=== PATIENT | female | born 1985 | race Caucasian/White ===

== ENCOUNTER 2017-12-03 09:47 | Emergency (ER) | payer BC, OTHER ==
[2017-12-03 10:33] LABS: #Eosinphils 0.1 thou/uL (0.0-0.7); #Lymphocytes 2.3 thou/uL (1.20-3.40); #Monocytes 0.6 thou/uL (0.11-0.59); #Neutrophils 3.5 thou/uL (1.40-6.50); %Basophils 0.5 % (0.0-1.0); %Lymphocytes 35.5 % (21.0-51.0); %Monocytes 8.6 % (0.0-10.0); %Neutrophils 53.4 % (42.0-75.0); Hemoglobin 14.6 g/dL (12.0-16.0); Mean Corpuscular Volume 88.3 fl (81.0-99.0); Mean Platelet Volume 9.4 fL (7.4-10.4); Platelet Count 197 thou/uL (130-400); RBC Distribution Width 12.8 % (11.5-14.5); Red Blood Cell (RBC) Count 4.85 mill/uL (4.20-5.40); White Blood Cell (WBC) Count 6.6 thou/uL (4.8-10.8)
[2017-12-03 10:54] LABS: BUN (Urea Nitrogen) Less than 20 mg/dL (7.0-18.7)
[2017-12-03 10:56] LABS: Lipase Less than 32 U/L (8-78)
[2017-12-03 11:06] LABS: Albumin 4.5 g/dL (3.5-5.0)
[2017-12-03 11:07] LABS: Chloride 107 mmol/L (98-107); Potassium 4.5 mmol/L (3.5-5.1); Sodium 139 mmol/L (136-145)
[2017-12-03 11:08] LABS: Calcium 9.7 mg/dL (7.8-10.44)
[2017-12-03 11:09] LABS: Globulin 3.1 g/dL (2.4-3.5); Glucose 94 mg/dL (70-105); Protein, Total 7.6 g/dL (6.0-8.3)
[2017-12-03 11:10] LABS: Anion Gap 15 mmol/L (10-20); Bilirubin, Total 0.6 mg/dL (0.2-1.2); Carbon Dioxide 22 mmol/L (22-29)
[2017-12-03 11:11] LABS: Alkaline Phosphatase 57 U/L (40-150)
[2017-12-03 11:12] LABS: Calc. Creatinine Clearance 0 mL/min (70-130); Estimated GFR-MDRD Greater than 90
[2017-12-03 11:14] LABS: ALT (SGPT) 20 U/L (8-55); AST (SGOT) 15 U/L (5-34)
[2017-12-03 12:05] LABS: BHCG - Serum Negative (NEGATIVE); Pregs Control Background? CLEAR/WHITE (CLR/WHITE); Pregs Control Bar Appear? YES (CONTROL BAR)
--- NOTE | 2017-12-03 14:11 | RAD ---
CHEST 1 VIEW ABDOMEN 2 VIEWS: Date: 12/03/17 HISTORY: Chest and abdomen pain. FINDINGS: Cardiac silhouette and pulmonary vasculature are unremarkable. Mediastinum is midline. There is no co nfluent air space consolidation or evidence of free subdiaphragmatic gas. Gas and stool overlie the colon and rectum. No differential air fluid levels. Phleboliths project ove r the pelvis. IMPRESSION: No significant abnormalities are demonstrated. POS: [facility]
[2017-12-03] MEDS ORDERED: Iopamidol 370 76% 50 ML VIAL FS ONE (14:36)
[2017-12-03] MEDS ORDERED: ISOVUE-370 76%-LOCM 1 ML ONE (14:36)
[2017-12-03 15:07] LABS: Bilirubin Negative (Negative); Blood, Urine Negative (Negative); Clarity CLEAR (Clear); Glucose, Urine (Dipstick) Negative (Negative); Leukocyte Negative (Negative); Nitrite Negative (Negative); Protein, Urine (Dipstick) Negative (Neg-Trace); Specific Gravity, Urine 1.024 (1.002-1.036); Urobilinogen 0.2 mg/dL (0.2-1.0); pH, Urine 5.5 (5.0-9.0)
--- NOTE | 2017-12-03 15:41 | CT ---
CT ABDOMEN AND PELVIS WITH IV AND ORAL CONTRAST 12/03/17 HISTORY: Abdominal pain. FINDINGS: The lung bases are clear. Liver, spleen, right kidney, adrenal glands, and pancreas have a normal CT appearance. Cortical cysts is noted at the superior pole left kidney. Nonspecific lymph nodes scatter ed throughout the retroperitoneum and mesentery. Appendix is not inflamed. Urinary bladder is unremar kable. IMPRESSION: No significant abnormalities are demonstrated. POS: [facility]
--- NOTE | 2018-01-13 13:59 | EKG ---
Test Reason : Blood Pressure : / mmHG Vent. Rate : 087 BPM Atrial Rate : 087 BPM P-R Int : 168 ms QRS Dur : 078 ms QT Int : 352 ms P-R-T Axes : 042 -04 028 degrees QTc Int : 423 ms Normal sinus rhythm with sinus arrhythmia Cannot rule out Anterior infarct , age undetermined Abnormal ECG Confirmed by ELFEGO CORNELL, MORGAN ([id number]), scientific publications editor ARIES LANG ([id number]) on 01/13/2018 1:58:58 PM Referred By: Confirmed By:MORGAN TELLES MD
== END 2017-12-03 16:20 | disposition home or self-care (01) ==
LOC: ERS 09:47
DX: E28.2 Polycystic ovarian syndrome (principal)
CPT/HCPCS: 36415; 74022; 74177; 80053; 81003; 83690; 84703; 85025; 93005

== ENCOUNTER 2017-12-04 15:08 | Emergency (ER) | payer OTHER | END 2017-12-04 17:15 | disposition home or self-care (01) | LOC: ERS 15:08 | DX: R10.33 Periumbilical pain (principal) | CPT/HCPCS: 99283 ==

== ENCOUNTER 2017-12-16 21:14 | Emergency (ER) | payer OTHER, SELFPAY ==
[2017-12-16] MEDS ORDERED: Cyclobenzaprine 10 MG TAB ONE (22:46)
[2017-12-16] MEDS ORDERED: Ketorolac Tromethamine 30 MG/ML VIAL ONE (22:46)
== END 2017-12-16 23:57 | disposition home or self-care (01) ==
LOC: ERS 21:14
DX: M54.5 Low back pain (principal); E28.2 Polycystic ovarian syndrome; F17.210 Nicotine dependence, cigarettes, uncomplicated
CPT/HCPCS: 96372; J1885

== ENCOUNTER 2018-04-19 12:33 | Emergency (ER) | payer OTHER | END 2018-04-19 13:40 | disposition home or self-care (01) | LOC: ERS 12:33 | DX: K83.8 Other specified diseases of biliary tract (principal); G43.909 Migraine, unspecified, not intractable, without status migrainosus; G47.33 Obstructive sleep apnea (adult) (pediatric) | CPT/HCPCS: 99406 ==

== ENCOUNTER 2018-09-19 13:17 | Emergency (ER) | payer OTHER | END 2018-09-19 16:10 | disposition home or self-care (01) | LOC: ERS 13:17 | DX: L72.3 Sebaceous cyst (principal); F17.210 Nicotine dependence, cigarettes, uncomplicated | CPT/HCPCS: 99282 ==

== ENCOUNTER 2018-10-22 02:14 | Emergency (ER) | payer OTHER ==
--- NOTE | 2018-10-22 08:20 | RAD ---
RIGHT WRIST 3 VIEWS: DATE: 10/22/2018. COMPARISON: None. HISTORY: Fall, trauma, pain. FINDINGS: No radiocarpal joint space narrowing. No widening of the scapholunate interval. No displaced fractu re or dislocation. If symptoms persist, followup in 7-10 days with dedicated scaphoid views. IMPRESSION: No acute findings. POS: [facility]
== END 2018-10-22 03:45 | disposition home or self-care (01) ==
LOC: ERS 02:14
DX: S69.81XA Other specified injuries of right wrist, hand and finger(s), initial encounter (principal); F17.210 Nicotine dependence, cigarettes, uncomplicated; X58.XXXA Exposure to other specified factors, initial encounter
CPT/HCPCS: 29125

== ENCOUNTER 2019-08-01 12:24 | Emergency (ER) | payer OTHER | END 2019-08-01 13:23 | disposition left against medical advice (07) | LOC: ERS 12:24 | DX: Z53.21 Procedure and treatment not carried out due to patient leaving prior to being seen by health care provider (principal) ==

== ENCOUNTER 2021-02-22 11:03 | Emergency (ER) | payer OTHER, SELFPAY ==
[2021-02-22] MEDS ORDERED: Diazepam 5 MG TAB ONE (12:08)
[2021-02-22] MEDS ORDERED: Ketorolac Tromethamine 30 MG/ML VIAL ONE (12:08)
== END 2021-02-22 13:27 | disposition home or self-care (01) ==
LOC: ERS 11:03
DX: M62.830 Muscle spasm of back (principal); F17.210 Nicotine dependence, cigarettes, uncomplicated
CPT/HCPCS: 72100; 96372; J1885